=== PATIENT | female | born 1965 | race Hispanic/Latino ===

== ENCOUNTER 2020-09-05 07:35 | Outpatient (CLI) | payer OTHER ==
[2020-09-05] MEDS ORDERED: NITROGLYCERIN 0.4 MG TAB SUBL SL ONE (08:17)
[2020-09-05 08:51] LABS: Blood Urea Nitrogen 18 mg/dL (7-17)
[2020-09-05] MEDS ORDERED: ATROPINE 0.1% (1 MG/10 ML) CARDIAC SYRINGE ONE (09:13)
[2020-09-05] MEDS ORDERED: METOPROLOL TARTRATE 5 MG/5 ML INJ IV ONE (09:14)
[2020-09-05 09:38] VITALS: BP 116/70
--- NOTE | 2020-09-06 11:19 | Cat Scan Report ---
CTA HEART WITH AND WITHOUT CONTRAST 09/06/2020 10:08 AM TECHNIQUE: Routine ECG-gated coronary CT angiography performed on a 64-channel system. 3-D/MIP reform ats were postprocessed. Note that this exam targets the heart and the entire chest was not imaged. CONTRAST: 100 ml Omnipaque 300 HISTORY: Myxoma of heart, palpitations COMPARISONS: none PREMEDICATION: See nurse's notes. FINDINGS: CARDIAC/CORONARY FINDINGS: Please see cardiology report in this particular case. EXTRACARDIAC/EXTRACORONARY FINDINGS: VISUALIZED LUNGS: unremarkable VISUALIZED MEDIASTINUM: unremarkable VISUALIZED CHEST WALL: unremarkable VISUALIZED UPPER ABDOMEN: unremarkable . IMPRESSION 1. Please see cardiology dictation in this particular case for the cardiac/coronary findings. 2. Otherwise unremarkable extracardiac/extracoronary findings. DISCLAIMER: This is a combined radiology and cardiology interpretation. Cardiology is solely responsible for rep orting of cardiac and coronary findings. Radiology is solely responsible for reporting of the extrac ardiac and extracoronary findings. Signer Name: Maxim Reyes Jr, MD Signed: 09/06/2020 11:15 AM Workstation Name: [id number]
--- NOTE | 2020-09-07 07:34 | CT Calcium Scoring Report ---
Coronary Calcium Score Date of service: 09/07/20 Procedure: High-resolution computed tomographic imaging of the chest was performed on09/05/20 with particular attention paid to the coronary arteries. Images from the examination were analyzed for the presence and extent of coronary artery calcification, using coronary calcium quantification software. The patient tolerated the procedure well and there were no complications. The results of the coronary calcification analysis are provided below. The patient scores are compared with published data related to scores for people of a similar age and the same gender. - Findings Left Anterior Descending Artery: 86.6 Left Circumflex(LCX): 187.9 Right Coronary Artery(RCA): 149.1 Total Agatson Score: 423.5 Percentile Ranking: >75 Findings: Cardiac CTA Indication: cardiac mass Informed consent obtained Procedure: The patient was brought to the cardiac ct laboratory at [facility] in stable condition after a 4 hour fast. Heart rate was regulated by beta blockade. Sublingual ngt was administered. After data acquisition and reconstruction, the images were processed and reviewed on the computer workstation. Multiple phases of the cardiac cycle were assessed for image interpretation. Volume rendered images, multiplanar reformated images, and maximum intensity projections images were generated and reviewed A coronary calcium score was performed via the Agatston method. A separate radiology assessment of the non cardiac structures in the field of view will be provided. Superior vena cava in the field of view appears normal Inferior vena cava in the filed of view appears normal Ascending aorta in the field of view appears normal Descending aorta in the field of view appears normal Pulmonary artery in the filed of view appears normal Pulmonary veins enter the left atrium appropriately Left ventricle appears normal Right Ventricle appears normal Left atrium appears normal Left atrial appendage appears normal Right atrium: ?lipomatous infiltration originating from the interatrial septum Interventricular septum appears normal Interatrial septum: lipomatous hypertrophy with fatty infiltration into the right atrium Aortic valve appears normal Mitral Valve appears normal Intracardiac mass: none Pericardial effusion: none Coronary Angiography: Dominance: right Origins: normal Left main: normal Left anterior descending coronary artery and diagonal branches: moderate non obstructive calcific plaque in the mid portion of the vessel Circumflex coronary artery and obtuse marginal branches: moderate non obstructive calcific plaque in proximal and mid portion of the vessel Right coronary artery: moderate non obstructive calcific plaque in proximal portion of the vessel the procedure was tolerated well. there were no procedural complications. Recommendation: consider cardiac mri for further evaluation of the interatrial septum and right atrium
== END 2020-09-05 10:00 | disposition home or self-care (01) ==
LOC: CATHLABREC 07:35
PROVIDERS: ATTEND Internal Medicine
DX: D15.1 Benign neoplasm of heart (principal); R00.2 Palpitations
CPT/HCPCS: 36415; 75574; 82565; 84520; Q9967; J0461

== ENCOUNTER 2020-09-13 05:59 | Outpatient (CLI) | payer OTHER ==
[2020-09-13] MEDS ORDERED: SODIUM CHLORIDE 0.9% 1000 ML 1,000 ML IV SCH (07:15)
[2020-09-13 07:25] LABS: Basophils # (Auto) 0.1 K/mm3 (0.0-0.1); Eosinophils # (Auto) 0.2 K/mm3 (0.0-0.4); Eosinophils % (Auto) 2.8 % (0.0-4.3); Hematocrit 40.5 % (30.3-42.9); Hemoglobin 14.2 gm/dl (10.1-14.3); Lymphocytes # (Auto) 2.5 K/mm3 (1.2-5.4); Lymphocytes % (Auto) 35.8 % (13.4-35.0); Mean Corpuscular HGB Conc 35 % (30-34); Mean Corpuscular Volume 99 fl (79-97); Monocytes # (Auto) 0.4 K/mm3 (0.0-0.8); Monocytes % (Auto) 5.8 % (0.0-7.3); Platelet Count 211 K/mm3 (140-440); Red Blood Count 4.07 M/mm3 (3.65-5.03); Red Cell Distribution Width 12.3 % (13.2-15.2)
[2020-09-13 07:35] LABS: BUN/Creatinine Ratio 11; Blood Urea Nitrogen 9 mg/dL (7-17); Calcium 9.3 mg/dL (8.4-10.2); Hemolysis Index 18; INR 0.94 (0.87-1.13)
--- NOTE | 2020-09-13 07:45 | Anesthesia Consultation ---
Anesthesia Consult and Med Hx Date of service: 09/13/20 - Airway Anesthetic Teeth Evaluation: Dentures ROM Head & Neck: Adequate Mental/Hyoid Distance: Adequate Mallampati Class: Class III Intubation Access Assessment: Possibly Difficult - Pre-Operative Health Status ASA Pre-Surgery Classification: ASA3 Proposed Anesthetic Plan: MAC - Pulmonary Hx Smoking: Yes (quit 3 years ago) Hx Asthma: No Hx Respiratory Symptoms: No SOB: Yes COPD: No Home Oxygen Therapy: No Hx Pneumonia: No Hx Sleep Apnea: Yes - Cardiovascular System Hx Hypertension: Yes Hx Coronary Artery Disease: No Hx Heart Attack/AMI: No Hx Angina: No Hx Percutaneous Transluminal Coronary Angioplasty (PTCA): No Hx Cardia Arrhythmia: No Hx Pacemaker: No Hx Internal Defibrillator: No Hx Valvular Heart Disease: No Hx Heart Murmur: No Hx Peripheral Vascular Disease: No - Central Nervous System Hx Neuromuscular Disorder: No (cervical fusion surgery 2002 ) Hx Seizures: No CVA: No Hx Back Pain: Yes Hx Psychiatric Problems: Yes (depression) - Gastrointestinal Hx Ulcer: No Hx Gastroesophageal Reflux Disease: Yes - Endocrine Hx Renal Disease: No Hx End Stage Renal Disease: No Hx Cirrhosis: No Hx Liver Disease: No (gallbladder removed 2017) Hx Insulin Dependent Diabetes: No Hx Non-Insulin Dependent Diabetes: No Hx Thyroid Disease: No Hx Hypothyroidism: No Hx Hyperthyroidism: No - Hematic Hx Anemia: No Hx Sickle Cell Disease: No - Other Systems Hx Alcohol Use: Yes (ETOH in the past) Hx Substance Use: No Hx Cancer: No Hx Obesity: Yes
--- NOTE | 2020-09-13 07:45 | Anesthesia Day of Surgery ---
Anesthesia Day of Surgery - Day of Surgery Patient Examined: Yes Patient H&P Reviewed: Yes Patient is NPO: Yes
[2020-09-13] MEDS ORDERED: BENZOCAINE 20% TOP SPRAY 0.5 ML UNIT DOSE MM NR (08:00)
[2020-09-13] MEDS ORDERED: propofoL 200 MG/20 ML VIAL IV ONE ×2 (08:46)
[2020-09-13] MEDS ORDERED: LIDOCAINE MPF (2%) 20 MG/1 ML VIAL 5 ML ONE (08:46)
--- NOTE | 2020-09-13 10:46 | Post Anesthesia Evaluation ---
- Post Anesthesia Evaluation Patient Participated: Yes Airway Patent: Yes Stable Respiratory Function: Yes Nausea/Vomiting: No Temp > 96.8F: Yes Pain Manageable: Yes Adequeate Hydration: Yes Anesthesia Complications: No
[2020-09-13 14:03] VITALS: BP 173/94
== END 2020-09-13 11:35 | disposition home or self-care (01) ==
LOC: OR 05:59 → CATHLABREC 05:59
PROVIDERS: ATTEND Internal Medicine
DX: D15.1 Benign neoplasm of heart (principal); I51.7 Cardiomegaly; I70.0 Atherosclerosis of aorta; I10 Essential (primary) hypertension; G47.30 Sleep apnea, unspecified; K21.9 Gastro-esophageal reflux disease without esophagitis; E66.9 Obesity, unspecified; M19.90 Unspecified osteoarthritis, unspecified site; F41.9 Anxiety disorder, unspecified; Z86.19 Personal history of other infectious and parasitic diseases; Z79.899 Other long term (current) drug therapy; Z91.040 Latex allergy status; Z88.8 Allergy status to other drugs, medicaments and biological substances; Z87.891 Personal history of nicotine dependence; Z90.49 Acquired absence of other specified parts of digestive tract; Z98.51 Tubal ligation status; Z90.710 Acquired absence of both cervix and uterus; Z68.41 Body mass index [BMI] 40.0-44.9, adult; Z72.89 Other problems related to lifestyle; Z98.890 Other specified postprocedural states
CPT/HCPCS: 36415; 80048; 85025; 85610; 85730; 93312; 93320; 93325; J2704; J7030; U0003